=== PATIENT | female | born 1945 | race Caucasian/White ===

== ENCOUNTER 2018-01-25 20:03 | Inpatient (IN) | payer BC, MEDICARE ==
[2018-01-25] MEDS ORDERED: Morphine 4 MG/ML VIAL ONE (20:36)
--- NOTE | 2018-01-25 20:53 | RAD ---
AP VIEW OF THE PELVIS: 01/25/18 INDICATION: Fall at home with right hip pain. COMPARISON: None. IMPRESSION: There is a mildly displaced, suspected subcapital, right femoral neck fracture. No additional fractur e is grossly evident. There is diffuse osteopenia. There is mild degenerative arthrosis of both hips. IMPRESSION: Mildly displaced right, suspected subcapital, femoral neck fracture. Right hip radiographs recomended . POS: [facility]
--- NOTE | 2018-01-25 20:55 | RAD ---
FOUR VIEWS OF THE RIGHT FEMUR: 01/25/18 INDICATIONS: Fall at home with right hip pain. FINDINGS: there is a mildly displaced right basicervical femoral neck fracture. This is best seen on the latera l projection. Dedicated views of the right hip are recommended or additional characterization of the right hip fracture. No additional fracture is evident. IMPRESSION: Right basicervical femoral neck fracture. POS: [facility]
--- NOTE | 2018-01-25 20:56 | RAD ---
TWO VIEWS OF THE RIGHT KNEE 01/25/18 INDICATION: Fall at home. COMPARISON: None. FINDINGS/IMPRESSION: There is diffuse osteopenia. No acute fracture or subluxation seen involving the right knee. POS: [facility]
[2018-01-25 21:08] LABS: #Basophils 0.1 thou/uL (0.0-0.2); #Eosinphils 0.1 thou/uL (0.0-0.7); #Lymphocytes 0.9 thou/uL (1.20-3.40); #Monocytes 0.6 thou/uL (0.11-0.59); #Neutrophils 8.9 thou/uL (1.40-6.50); %Basophils 0.7 % (0.0-1.0); %Eosinophils 1.3 % (0.0-10.0); %Lymphocytes 8.7 % (21.0-51.0); %Monocytes 5.9 % (0.0-10.0); %Neutrophils 83.4 % (42.0-75.0); Hemoglobin 11.6 g/dL (12.0-16.0); Mean Corpuscular HGB CONC 32.8 g/dL (32.0-36.0); Mean Corpuscular Hemoglobin 29.9 pg (27.0-31.0); Mean Corpuscular Volume 91.2 fl (81.0-99.0); Mean Platelet Volume 7.6 fL (7.4-10.4); Platelet Count 250 thou/uL (130-400); RBC Distribution Width 11.9 % (11.5-14.5); Red Blood Cell (RBC) Count 3.87 mill/uL (4.20-5.40); White Blood Cell (WBC) Count 10.7 thou/uL (4.8-10.8)
[2018-01-25 21:18] LABS: Bilirubin Negative (Negative); Blood, Urine Negative (Negative); Clarity CLEAR (Clear); Glucose, Urine (Dipstick) Negative (Negative); Leukocyte Negative (Negative); Nitrite Negative (Negative); Protein, Urine (Dipstick) Negative (Neg-Trace); Urobilinogen 0.2 mg/dL (0.2-1.0)
[2018-01-25 21:30] LABS: ALT (SGPT) 11 U/L (8-55); AST (SGOT) 16 U/L (5-34); Alkaline Phosphatase 85 U/L (40-150); Anion Gap 13 mmol/L (10-20); BUN (Urea Nitrogen) 22 mg/dL (9.8-20.1); Bilirubin, Total 0.3 mg/dL (0.2-1.2); Calc. Creatinine Clearance 0 mL/min (70-130); Calcium 9.4 mg/dL (7.8-10.44); Carbon Dioxide 22 mmol/L (23-31); Chloride 107 mmol/L (98-107); Estimated GFR-MDRD 60; Globulin 2.7 g/dL (2.4-3.5); Glucose 86 mg/dL (80-115); Lipase 45 U/L (8-78); Magnesium 1.8 mg/dL (1.6-2.6); Protein, Total 6.7 g/dL (6.0-8.3); Sodium 138 mmol/L (136-145)
[2018-01-25] MEDS ORDERED: Ketorolac Tromethamine 30 MG/ML VIAL ONE (22:00)
[2018-01-25] MEDS ORDERED: Dextrose 50% Abboject 50 ML SYRINGE SLOW IVP PRN (22:01)
[2018-01-25] MEDS ORDERED: Ondansetron HCl/PF 4 MG/2 ML Vial IVP PRN (22:01)
[2018-01-25] MEDS ORDERED: Morphine 4 MG/ML VIAL SLOW IVP PRN (22:01)
[2018-01-25] MEDS ORDERED: Dextrose 5% in Water 1,000 ML IV PRN (22:01)
[2018-01-25] MEDS ORDERED: traMADol HCl 50 MG TAB PO PRN ×2 (22:01)
[2018-01-25] MEDS ORDERED: hydrALAZINE 20 MG/ML VIAL SLOW IVP PRN (22:01)
[2018-01-25] MEDS ORDERED: Ondansetron ODT 4 MG TAB PO PRN (22:01)
--- NOTE | 2018-01-25 22:35 | RAD ---
AP VIEW OF THE CHEST 01/25/18 INDICATION: History of COPD; preop examination. COMPARISON: Prior exam dated 01/26/16. FINDINGS: Chronic lung changes consistent with COPD are stable. No air space opacity, pleural effusion, or pneu mothorax is evident. No acute osseous abnormality is evident. Heart size and pulmonary vasculature ar e within normal limits. Vascular calcification of the aortic arch is stable. IMPRESSION: 1. No acute cardiopulmonary abnormality. 2. Stable COPD change. POS: [facility]
[2018-01-25] MEDS: Acetaminophen 500 MG TAB PO SCH (23:56)
[2018-01-25] MEDS: Sodium Chloride 0.9% 1,000 ML IV SCH (23:58)
[2018-01-26 00:24] VITALS: BMI 22.5
--- NOTE | 2018-01-26 01:00 | HP ---
DATE OF ADMISSION: 01/25/2018 ATTENDING PHYSICIAN: Dr. Crowe. TRAUMA ACTIVATION: Not applicable. HISTORY OF PRESENT ILLNESS: Tameka Arroyo is a 72-year-old female, who presented to [facility] stat post fall. Per patient, she was stepping backwards down her stairs at home, missed a step and the n fell landing on her right side. She had immediate onset of right hip pain and knee pain. She was unable to ambulate after the fall. She denies hitting her head. She denies having any loss of consc iousness. She was evaluated in the emergency room and found to have an isolated right hip fracture. Upon my evaluation, the patient continues to have a chief complaint of right thigh and right hip tavares n that radiates into her back. She denies any other complaints at this time. ALLERGIES: BETADINE and MERCURY. HOME MEDICATIONS: Include Symbicort inhaler and lisinopril 10 mg p.o. daily. PAST MEDICAL HISTORY: Significant for history of hypertension and COPD. PAST SURGICAL HISTORY: x1. 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 Denies alcohol or illicit drug use. Former sm rosaer, quit approximately 5 years ago, half pack per day x40 years. FAMILY HISTORY: Significant for a mother with rheumatoid arthritis and a father with asbestosis. REVIEW OF SYSTEMS: Ten-point review of systems was negative except as indicated in the HPI. PHYSICAL EXAMINATION: VITAL SIGNS: On evaluation, blood pressure 154/83, pulse 105, O2 sat 93% to 95% on 2 liters via nasa l cannula, temperature 98.3. GENERAL: Well-developed female, in no acute distress, resting in bed. HEAD: Normocephalic, atraumatic. EYES: Pupils are PERRL. Extraocular movements are intact. NECK: Supple. Trachea is midline. CHEST/PULMONARY: No tenderness to palpation, atraumatic. Normal work of breathing, symmetric rise. LUNGS: Clear to auscultation bilaterally. CARDIOVASCULAR: Tachycardic, regular rhythm, no obvious murmurs, rubs or gallops. GASTROINTESTINAL: Abdomen is soft, nontender, nondistended, atraumatic. Bowel sounds are positive. BACK: Reported as being within normal limits. MUSCULOSKELETAL: Right upper extremity, small 1.5 cm abrasion on the right forearm. Left upper extr emity within normal limits. Left lower extremity within normal limits. Right lower extremity flex w ith some internal rotation, limited range of motion secondary to pain. Pulses 2+ bilaterally. She i s neurovascularly intact distal to the side of her injury. NEUROLOGIC: GCS of 15. No focal deficit is noted. LABORATORY FINDINGS: WBC 10.7, hemoglobin 11.6, hematocrit 35.3, platelet count 250. Sodium 138, po tassium 4.0, chloride 107, carbon dioxide 22, BUN 22, creatinine 0.93, glucose 86. AST and ALT withi n normal limits. Urinalysis was unremarkable. EKG with sinus rhythm and incomplete right bundle bra nch block. No evidence of STEMI. RADIOLOGIC FINDINGS: Chest x-ray pending. X-ray of the right knee negative for acute fracture or di slocation. X-ray of the pelvis demonstrated mildly displaced right femoral neck fracture. X-ray of the right femur per radiology read showed a right femoral neck fracture. ASSESSMENT: 1. Status post mechanical fall. 2. Right hip fracture. 3. Acute traumatic pain. 4. History of chronic obstructive pulmonary disease. 5. History of hypertension. 6. Likely chronic kidney disease, GFR of 60, which appears to be at baseline per records review. PLAN: Admit to Trauma Services. We will admit the patient to tow 3, n.p.o. after midnight. Emerg ency room physician has spoken with Dr. Martino who plans to evaluate the patient in the morning. Ge ntle IV fluid hydration. Perioperative pain management with p.o. and IV analgesics. Postoperative P T and OT. DVT and gastritis prophylaxis as appropriate. Plans for admission were discussed with the patient, who vocalized her understanding. All questions were answered at the time of this dictation . Trauma attending has been notified of admission.
[2018-01-26] MEDS: Ketorolac Tromethamine 30 MG/ML VIAL IVP SCH ×3 (04:41→16:17)
[2018-01-26] MEDS: Acetaminophen 500 MG TAB PO SCH ×4 (04:57→22:05)
[2018-01-26 05:41] LABS: #Eosinphils 0.1 thou/uL (0.0-0.7); #Lymphocytes 1.2 thou/uL (1.20-3.40); #Monocytes 0.7 thou/uL (0.11-0.59); #Neutrophils 4.9 thou/uL (1.40-6.50); %Basophils 0.2 % (0.0-1.0); %Eosinophils 1.8 % (0.0-10.0); %Lymphocytes 17.5 % (21.0-51.0); %Monocytes 9.7 % (0.0-10.0); %Neutrophils 70.7 % (42.0-75.0); Hemoglobin 9.9 g/dL (12.0-16.0); Mean Corpuscular HGB CONC 32.7 g/dL (32.0-36.0); Mean Corpuscular Hemoglobin 30.4 pg (27.0-31.0); Mean Corpuscular Volume 92.9 fl (81.0-99.0); Mean Platelet Volume 8.1 fL (7.4-10.4); Platelet Count 200 thou/uL (130-400); Red Blood Cell (RBC) Count 3.25 mill/uL (4.20-5.40)
[2018-01-26 06:03] LABS: Anion Gap 5 mmol/L (10-20); BUN (Urea Nitrogen) 23 mg/dL (9.8-20.1); Calc. Creatinine Clearance 49 mL/min (70-130); Calcium 8.7 mg/dL (7.8-10.44); Carbon Dioxide 27 mmol/L (23-31); Chloride 107 mmol/L (98-107); Estimated GFR-MDRD 49; Glucose 89 mg/dL (80-115); Magnesium 1.9 mg/dL (1.6-2.6); Phosphorus 4.5 mg/dL (2.3-4.7); Potassium 4.2 mmol/L (3.5-5.1); Sodium 135 mmol/L (136-145)
[2018-01-26] MEDS ORDERED: Bupivacaine PF 0.5% 30 ML VIAL ONE (08:08)
[2018-01-26] MEDS ORDERED: Dexamethasone 4 mg/ml Vial ONE (08:08)
[2018-01-26] MEDS: Sodium Chloride 0.9% 1,000 ML IV SCH ×3 (08:20→23:20)
[2018-01-26] MEDS ORDERED: CEFAZOLIN/Water 2 GM/20 ML SYRINGE ONE (08:23)
[2018-01-26] MEDS ORDERED: Famotidine/PF 20 mg/2ml Vial SLOW IVP SCH (09:00)
[2018-01-26] MEDS ORDERED: Senokot S 8.6-50 MG TAB PO SCH (09:00)
--- NOTE | 2018-01-26 09:01 | TCOM ---
DATE OF CONSULTATION: 01/26/2018 HISTORY OF PRESENT ILLNESS: Ms. Arroyo is a 72-year-old white female who was at home. She was niurka ing back, was coming down some stairs, she missed a stair and fell landing on her right side. She zafar d immediate pain in the right hip region and inability to ambulate. The patient was brought to the e mergency room and x-rays revealed impacted femoral neck fracture of the right hip. She has no neurol ogic complaints in the right hip. No other complaints elsewhere. PAST MEDICAL HISTORY: COPD and hypertension. MEDICATIONS: Symbicort inhaler and lisinopril. PAST SURGICAL HISTORY: x1. ALLERGIES: BETADINE, MERCURY and NICKEL. SOCIAL HISTORY: The patient is . She lives at home. She is a former smoker, quit 5 years ag o. 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 She does not drink alcohol or use illicit drugs. PHYSICAL EXAMINATION: GENERAL: Patient is a very pleasant female, alert and oriented x3, cooperative with the examination. VITAL SIGNS: Temperature 97.7, pulse 76, respiratory rate 16, blood pressure 117/61, O2 saturation 9 3% on 2 liters. HEENT: Unremarkable for age. Cranial nerves II-XII are grossly intact. NECK: The neck has good range of motion without pain. Thoracic and lumbar spine are nontender to pa lpation. LUNGS: Clear bilaterally. HEART: Regular rate and rhythm. ABDOMEN: Soft, nontender, bowel sounds positive. : Not done. EXTREMITIES: The patient is able to move both upper extremities and left lower extremity without tavares n. The patient has pain in the right hip region with any attempts of movement. She is able to move her right knee, ankle and toes. Right lower extremity is neurovascularly intact. LABORATORY DATA: CBC shows white count 10.7, hemoglobin 11.6, hematocrit 35.3. Chemistries are norm al. Urinalysis was unremarkable. EKG shows sinus rhythm with incomplete right bundle branch block. IMPRESSION: 1. Impacted femoral neck fracture, right hip. 2. Chronic obstructive pulmonary disease. 3. Hypertension. PLAN: The patient has been worked up. She is surgically cleared for surgery. She will be taken to surgery today for multiple pinning of the right hip. Potential risks with the condition of surgery i nclude, but are not limited to infection, bleeding, pain, damage to blood vessels or nerves, nonunion , malunion. The patient may require additional surgery, DVT and PE formation. The patient's questio ns were answered and she agreed to the procedure.
--- NOTE | 2018-01-26 09:31 | PRG ---
DATE OF SERVICE: 01/26/2018 Please see Susana Bryan PA-C, history and physical. PLAN: Per Dr. Martino, Orthopedic Surgery, the patient has a history of chronic COPD and hypertensio n. She has an impacted femoral neck fracture on the right. Dr. Martino is planning repair today. S he is seen in the preop holding area and is hemodynamically stable. Trauma service will follow.
[2018-01-26] MEDS ORDERED: Bisacodyl 10 MG SUPP PR PRN (10:10)
[2018-01-26] MEDS ORDERED: Fleet Enema 133 ML BOT PR PRN (10:10)
[2018-01-26] MEDS ORDERED: Ondansetron HCl/PF 4 MG/2 ML Vial IVP PRN ×2 (10:10→10:19)
[2018-01-26] MEDS ORDERED: Acetaminophen 325 MG TAB PO PRN (10:10)
[2018-01-26] MEDS ORDERED: Ondansetron ODT 4 MG TAB PO PRN (10:10)
[2018-01-26] MEDS ORDERED: Milk Of Magnesia 30 ML UDCUP PO PRN (10:10)
[2018-01-26] MEDS ORDERED: Cepastat Lozenges 1 LOZ PO PRN (10:10)
[2018-01-26] MEDS ORDERED: HYDROmorphone 2 MG/ML VIAL SLOW IVP PRN (10:19)
[2018-01-26] MEDS ORDERED: Morphine Sulfate 2 MG/ML SYRINGE SLOW IVP PRN (10:19)
[2018-01-26] MEDS ORDERED: Promethazine HCl 25 MG/ML VIAL IM PRN (10:19)
[2018-01-26] MEDS ORDERED: Promethazine HCl 25 MG/ML VIAL SLOW IVP PRN (10:19)
[2018-01-26] MEDS ORDERED: Meperidine HCl/PF 25 MG/ML VIAL SLOW IVP PRN (10:19)
--- NOTE | 2018-01-26 10:39 | OP ---
DATE OF OPERATION: 01/26/2018 PREOPERATIVE DIAGNOSIS: Impacted femoral neck fracture of the right hip. POSTOPERATIVE DIAGNOSIS: Impacted femoral neck fracture of the right hip. PROCEDURE: Multiple pinning of impacted femoral neck fracture, right hip. SURGEON: Flavio Martino M.D. ANESTHESIA: General. TECHNIQUE: The patient was given preoperative IV antibiotics, taken to the operating room and placed in supine position. Satisfactory general anesthesia was performed. The patient was placed on the f racture table. All bony prominences were well padded. C-arm was used to verify impacted femoral nec k fracture, still in good position. Lateral aspect of the right hip and thigh was sterilely prepped and draped in usual fashion. A 1 inch incision was made on the lateral aspect of the proximal thigh and under fluoroscopic visualization, 2 guide pins were placed up through the femoral neck and into t he femoral head. After making sure that the pins were in good position with the C-arm and AP lateral and multiple oblique views, appropriate sized screws were measured and two 32 mm threaded 7.3 cannul ated screws were inserted into the femoral neck and head with good fixation. Again, C-arm was used t o verify proper placement of the screws. The guide pins were removed. The wound was irrigated with antibiotic solution. The wound was closed using 3-0 Rapide. Sterile dressing was applied. The teodoro ent was awakened, extubated, and transferred to recovery room in stable condition. ESTIMATED BLOOD LOSS: 5 mL. COMPLICATIONS: None.
--- NOTE | 2018-01-26 14:13 | RAD ---
RIGHT HIP 2 VIEWS: HISTORY: Hip pain. COMPARISON: None. FINDINGS: There are 2 cannulated partially threaded screws through the right femoral neck. IMPRESSION: Satisfactory appearance of the hardware right femoral neck. POS: [facility]
[2018-01-26] MEDS ORDERED: PROPOFOL 200 MG/20 ML VIAL ONE (15:02)
[2018-01-26] MEDS ORDERED: Lidocaine 1% PF 5 ML VIAL ONE (15:02)
[2018-01-26] MEDS ORDERED: ePHEDrine/0.9% NaCl/PF SYRINGE 50 mg/10 ml ONE (15:02)
[2018-01-26] MEDS ORDERED: Ondansetron HCl/PF 4 MG/2 ML Vial ONE (15:02)
[2018-01-26] MEDS ORDERED: PHENYLEPHRINE-NS 100 MCG/ML 10 ML SYRINGE ONE (15:02)
[2018-01-26] MEDS ORDERED: Dexamethasone 20 MG/5 ML VIAL ONE (15:02)
--- NOTE | 2018-01-26 17:32 | PRG ---
DATE OF SERVICE: 01/26/2018 ATTENDING PHYSICIAN: Dr. Crowe. SUBJECTIVE: Mrs. Arroyo is a 72-year-old female who was admitted overnight with a right hip fracture . She went to the OR this morning with Dr. Martino and is now seen on the surgical floor, postop day 0. Upon my evaluation, she reports that her pain is 0 with rest. She does have a little bit of tavares n with movement. She has been resting comfortably in bed and voices no other complaints. OBJECTIVE: VITAL SIGNS: BP 114/58, pulse 94, temperature 97.6, respirations 16, O2 sat 92% on 3 liters. GENERAL APPEARANCE: Patient is an elderly adult female lying in bed. She is in no acute distress. HEENT: Normocephalic and atraumatic. She has nasal cannula in place. RESPIRATORY: Her breath sounds are clear to auscultation bilaterally. CARDIOVASCULAR: She has regular rate and rhythm. No murmurs, gallops or rubs. Her distal pulses ar e 2+ bilaterally. ABDOMEN: Soft, nontender, and nondistended. She has normal bowel sounds. EXTREMITIES: Patient moves all extremities. She has a dressing over her right greater trochanter wh ich is clean and dry. NEUROLOGIC: Her GCS is 15. She has no focal deficit. LABORATORY DATA: Hematology: WBC 7.0, hemoglobin 9.9, hematocrit 30.2, platelets 200. Chemistry: Sodium 135, potassium 4.2, chloride 107, bicarbonate 27, BUN 23, creatinine 1.10, glucose 89, calcium 8.7, phosphorus 4.5, magnesium 1.9. IMAGING: There are no images to review today. ASSESSMENT: 1. Status post ground level fall. 2. Right hip fracture. 3. Acute traumatic pain. 4. History of chronic obstructive pulmonary disease. 5. History of hypertension. 6. History of chronic kidney disease. PLAN: 1. Continue to optimize the patient's pain control. Patient currently reports adequate pain control with Tylenol, Toradol, and Tramadol. 2. Incentive spirometry and pulmonary toilet. 3. PT and OT tomorrow for mobilization. 4. Rehabilitation consultation. 5. Chemical DVT prophylaxis when okay per Orthopedic Surgery. 6. Trend kidney function and monitor fluid balance. This patient was seen and examined along with Dr. Crowe who agrees with the assessment and plan.
[2018-01-26] MEDS: Mometasone/Formoterol 120 PUFF INHALER INH SCH (18:57)
[2018-01-26] MEDS: Famotidine 20 MG TAB PO SCH (20:45)
[2018-01-26] MEDS: Ascorbic Acid 500 mg Chewable Tablet PO SCH (20:45)
[2018-01-26] MEDS: Ferrous Gluconate 324 MG TAB PO SCH (20:46)
[2018-01-26] MEDS: Senokot S 8.6-50 MG TAB PO SCH (20:46)
[2018-01-26] MEDS: Ibuprofen 200 MG TAB PO SCH (22:04)
[2018-01-26] MEDS: traMADol HCl 50 MG TAB PO SCH (23:19)
[2018-01-27] MEDS: Sodium Chloride 0.9% 1,000 ML IV SCH ×2 (04:28→05:46)
[2018-01-27] MEDS: Acetaminophen 500 MG TAB PO SCH ×4 (04:29→20:26)
[2018-01-27] MEDS: Ibuprofen 200 MG TAB PO SCH ×3 (05:32→20:25)
[2018-01-27] MEDS: traMADol HCl 50 MG TAB PO SCH ×4 (05:33→23:52)
[2018-01-27 05:47] LABS: Hemoglobin 9.1 g/dL (12.0-16.0); Mean Corpuscular HGB CONC 32.3 g/dL (32.0-36.0); Mean Corpuscular Hemoglobin 29.7 pg (27.0-31.0); Mean Platelet Volume 7.9 fL (7.4-10.4); Platelet Count 160 thou/uL (130-400); Red Blood Cell (RBC) Count 3.07 mill/uL (4.20-5.40)
[2018-01-27 05:48] LABS: #Lymphocytes 0.7 thou/uL (1.20-3.40); #Monocytes 0.6 thou/uL (0.11-0.59); #Neutrophils 5.6 thou/uL (1.40-6.50); %Basophils 0.3 % (0.0-1.0); %Eosinophils 0.1 % (0.0-10.0); %Lymphocytes 9.9 % (21.0-51.0); %Monocytes 8.8 % (0.0-10.0); %Neutrophils 80.9 % (42.0-75.0); Mean Corpuscular Volume 93.9 fl (81.0-99.0); Mean Platelet Volume 8.2 fL (7.4-10.4); Platelet Count 161 thou/uL (130-400); White Blood Cell (WBC) Count 6.9 thou/uL (4.8-10.8)
[2018-01-27 06:14] LABS: Anion Gap 9 mmol/L (10-20); BUN (Urea Nitrogen) 18 mg/dL (9.8-20.1); Calc. Creatinine Clearance 60 mL/min (70-130); Calcium 8.3 mg/dL (7.8-10.44); Carbon Dioxide 22 mmol/L (23-31); Chloride 111 mmol/L (98-107); Estimated GFR-MDRD 62; Glucose 113 mg/dL (80-115); Magnesium 1.9 mg/dL (1.6-2.6); Potassium 4.2 mmol/L (3.5-5.1); Sodium 138 mmol/L (136-145)
[2018-01-27] MEDS: Mometasone/Formoterol 120 PUFF INHALER INH SCH ×2 (06:20→20:10)
[2018-01-27] MEDS ORDERED: Lisinopril 10 MG TAB PO SCH (09:00)
[2018-01-27] MEDS: Polyethylene Glycol 3350 17 GM Packet PO SCH (09:49)
[2018-01-27] MEDS: Multivitamin W/ Minerals 1 TAB PO SCH (09:50)
[2018-01-27] MEDS: Ascorbic Acid 500 mg Chewable Tablet PO SCH ×2 (09:50→20:24)
[2018-01-27] MEDS: Famotidine 20 MG TAB PO SCH ×2 (09:50→20:25)
[2018-01-27] MEDS: Ferrous Gluconate 324 MG TAB PO SCH ×2 (09:50→20:25)
[2018-01-27] MEDS: Senokot S 8.6-50 MG TAB PO SCH ×2 (09:50→20:25)
--- NOTE | 2018-01-27 10:26 | PRG ---
DATE OF SERVICE: 01/27/2018 SUBJECTIVE: Ms. Arroyo is 1 day status post multiple pinning of impacted femoral neck fracture of th e right hip. She states that she is doing well. She has very little pain at rest. Still has some n umbness over the anterior aspect of the right hip and thigh. PHYSICAL EXAMINATION: VITAL SIGNS: Patient is afebrile. Vital signs are stable. EXTREMITIES: The right lower extremity is neurovascularly intact in the foot and ankle. She is able to dorsiflex and plantarflex the ankle well. Has good flexion and extension of her toes. Good kathrin pheral pulses. LABORATORY DATA: Hemoglobin is 9.1 and hematocrit 28.3. PLAN: The patient will be started in physical and occupational therapy to mobilize the patient. She may weightbear as tolerated on the right lower extremity, but should use a walker to ambulate and we will progress her activity as tolerated.
--- NOTE | 2018-01-27 11:50 | PRG ---
DATE OF SERVICE: 01/27/2018 ATTENDING PHYSICIAN: Dr. Crowe. SUBJECTIVE: Mrs. Arroyo is a 72-year-old female who was admitted 2 nights ago with a right hip fract ure. She is now postop day #1 status post open reduction and internal fixation with Dr. Martino. Th is morning on exam, she reports that her pain is well controlled. She is somewhat sleepy and hoarse that she did not sleep well overnight. OBJECTIVE: VITAL SIGNS: BP 119/64, pulse 78, temperature 97.9, respirations 16, O2 sat 92% on 2 liters. GENERAL APPEARANCE: The patient is an elderly adult female lying in bed. She is in no acute distres s. HEENT: Normocephalic and atraumatic. She has nasal cannula in place. RESPIRATORY: Breath sounds clear to auscultation bilaterally. CARDIOVASCULAR: She has regular rate and rhythm. No murmurs, gallops or rubs. Her distal pulses ar e 2+ bilaterally. ABDOMEN: Soft, nontender, nondistended. Her bowel sounds are hypoactive. EXTREMITIES: The patient has a dressing in place of her right greater trochanter which is clean and mostly dry. There is a minimal amount of serosanguineous drainage. She is neurovascularly intact x4 . NEUROLOGIC: Her GCS is 15. She has no focal deficits. She is alert and oriented x3 this morning. LABORATORY DATA: Hematology: WBC 7.0, hemoglobin 9.1, hematocrit 28.3, platelets 160. Chemistry: Sodium 138, potassium 4.2, chloride 111, bicarbonate 22, BUN 18, creatinine 0.90, glucose 113, calciu m 8.3, phosphorus 4.0, magnesium 1.9. IMAGES: There are no images to review today. ASSESSMENT: 1. Status post ground level fall. 2. Right hip fracture, status post open reduction and internal fixation, postoperative day #1. 3. Acute traumatic pain. 4. History of chronic obstructive pulmonary disease. 5. History of hypertension. 6. History of chronic kidney disease. PLAN: 1. Continue pain control as ordered. 2. Encourage incentive spirometry and pulmonary toileting. 3. PT and OT today for mobilization. 4. Chemical DVT prophylaxis when okay per Orthopedic Surgery. 5. Continue to trend kidney function, monitor fluid balance. This patient was discussed with Dr. Crowe and Dr. Jj who agrees with the assessment and plan.
[2018-01-27] MEDS ORDERED: Cyclobenzaprine 10 MG TAB PO PRN (18:43)
[2018-01-27] MEDS: Enoxaparin Sodium 40 MG/0.4 ML SYRINGE SC SCH (20:24)
[2018-01-28] MEDS: Acetaminophen 500 MG TAB PO SCH ×4 (03:57→20:37)
[2018-01-28] MEDS: Ibuprofen 200 MG TAB PO SCH ×3 (05:10→22:06)
[2018-01-28] MEDS: traMADol HCl 50 MG TAB PO SCH ×4 (05:11→23:57)
[2018-01-28] MEDS: Mometasone/Formoterol 120 PUFF INHALER INH SCH ×2 (07:06→18:39)
[2018-01-28 08:08] LABS: #Basophils 0.1 thou/uL (0.0-0.2); #Eosinphils 0.4 thou/uL (0.0-0.7); #Monocytes 0.5 thou/uL (0.11-0.59); #Neutrophils 4.9 thou/uL (1.40-6.50); %Basophils 0.8 % (0.0-1.0); %Eosinophils 5.8 % (0.0-10.0); %Lymphocytes 14.9 % (21.0-51.0); %Monocytes 7.8 % (0.0-10.0); %Neutrophils 70.6 % (42.0-75.0); Hemoglobin 10.1 g/dL (12.0-16.0); Mean Corpuscular HGB CONC 32.2 g/dL (32.0-36.0); Mean Corpuscular Hemoglobin 30.4 pg (27.0-31.0); Mean Corpuscular Volume 94.3 fl (81.0-99.0); Mean Platelet Volume 8.2 fL (7.4-10.4); Platelet Count 194 thou/uL (130-400); RBC Distribution Width 12.2 % (11.5-14.5); Red Blood Cell (RBC) Count 3.32 mill/uL (4.20-5.40); White Blood Cell (WBC) Count 6.9 thou/uL (4.8-10.8)
[2018-01-28] MEDS: Lisinopril 10 MG TAB PO SCH (08:14)
[2018-01-28] MEDS: Ferrous Gluconate 324 MG TAB PO SCH ×2 (08:14→20:36)
[2018-01-28] MEDS: Ascorbic Acid 500 mg Chewable Tablet PO SCH ×2 (08:15→20:38)
[2018-01-28] MEDS: Famotidine 20 MG TAB PO SCH ×2 (08:15→20:36)
[2018-01-28] MEDS: Bisacodyl 10 MG SUPP PR SCH (08:15)
[2018-01-28] MEDS: Multivitamin W/ Minerals 1 TAB PO SCH (08:15)
[2018-01-28] MEDS: Senokot S 8.6-50 MG TAB PO SCH ×2 (08:15→19:20)
[2018-01-28] MEDS: Polyethylene Glycol 3350 17 GM Packet PO SCH (08:16)
[2018-01-28 08:27] LABS: Anion Gap 7 mmol/L (10-20); BUN (Urea Nitrogen) 16 mg/dL (9.8-20.1); Calc. Creatinine Clearance 63 mL/min (70-130); Calcium 8.9 mg/dL (7.8-10.44); Carbon Dioxide 26 mmol/L (23-31); Chloride 108 mmol/L (98-107); Estimated GFR-MDRD 65; Glucose 86 mg/dL (80-115); Magnesium 1.9 mg/dL (1.6-2.6); Phosphorus 3.1 mg/dL (2.3-4.7); Potassium 4.2 mmol/L (3.5-5.1); Sodium 137 mmol/L (136-145)
--- NOTE | 2018-01-28 11:16 | PRG ---
DATE OF SERVICE: 01/28/2018 SUBJECTIVE: Ms. Arroyo is 2 days status post multiple pinning of impacted femoral neck fracture of t he right hip. The patient states that her pain has decreased. She is doing better. PHYSICAL EXAMINATION: VITAL SIGNS: The patient has been afebrile. Pulse 95, respiratory rate is 18, blood pressure 178/79 . MUSCULOSKELETAL: Incision over the lateral aspect of the right thigh is healing well. There is mini mal swelling, no erythema or drainage. Right lower extremity remains neurovascularly intact. LABORATORY DATA: This morning, CBC; white count 6.9, hemoglobin 10.1, hematocrit 31.3. PLAN: The patient will continue with PT and OT to help mobilize her to get her out of bed and ambula te. She may weightbear as tolerated on the right lower extremity. There is no hip precautions. The patient is planning on trying to get into a rehab after discharge.
[2018-01-28] MEDS: traMADol HCl 50 MG TAB PO PRN (14:41)
--- NOTE | 2018-01-28 18:24 | PRG ---
DATE OF SERVICE: 01/28/2018 ATTENDING PHYSICIAN: Hai Jj DO SUBJECTIVE: Mrs. Arroyo is a 72-year-old female, who was admitted 3 nights ago with a right hip frac ture. She is now postop day #2, status post open reduction and internal fixation. She reports that her pain is generally well controlled except when she has to move. She reports that she is not sleep ing well. OBJECTIVE: VITAL SIGNS: Blood pressure 178/79, pulse 95, temperature 98.4, respirations 18, O2 sat 83% on room air. GENERAL APPEARANCE: The patient is an elderly adult female lying in bed, in no acute distress. HEENT: Normocephalic and atraumatic. RESPIRATORY: Breath sounds clear to auscultation bilaterally. CARDIOVASCULAR: Regular rate and rhythm. No murmurs, gallops or rubs. ABDOMEN: Soft, nontender, nondistended. Bowel sounds hypoactive. EXTREMITIES: The patient is neurovascularly intact x4. A dressing is in place of her right hip. NEUROLOGIC: GCS of 15. She has no focal deficits. She is alert and oriented x3 this morning. LABORATORY DATA: Hematology: WBC 6.9, hemoglobin 10.1, hematocrit 31.3, platelets 194. Chemistry: Sodium 137, potassium 4.2, chloride 108, bicarbonate 26, BUN 16, creatinine 0.86, glucose 86, calciu m 8.9, phosphorus 3.1, magnesium 1.9. IMAGING: There are no images to review. ASSESSMENT: 1. Status post ground level fall. 2. Right hip fracture, status post open reduction and internal fixation, postoperative day #2. 3. Acute traumatic pain. 4. History of chronic obstructive pulmonary disease. 5. History of hypertension. 6. History of chronic kidney disease. PLAN: 1. Continue pain control as ordered. The nurse remained that the patient has a p.r.n. tramadol, whi ch she has not been getting. Nursing communication order written, instructing the patient to get thi s 30 minutes before physical therapy. 2. Incentive spirometer and pulmonary toileting. 3. PT and OT for mobilization. 4. Nasal cannula oxygen supplementation given background COPD and low oxygen saturation this morning . The patient reports that she thinks her DuoNebs did not help and she wants to be placed back on he r Symbicort. Dr. Jj was in agreement with this. This patient was seen and examined along with Dr. Jj who agrees with the assessment and plan.
[2018-01-28] MEDS: Enoxaparin Sodium 40 MG/0.4 ML SYRINGE SC SCH (20:36)
[2018-01-28] MEDS ORDERED: Furosemide 20 MG/2 ML VIAL SLOW IVP SCH (22:30)
--- NOTE | 2018-01-28 22:37 | RAD ---
PORTABLE CHEST: HISTORY: Hypoxic. COMPARISON: 01/25/2018 FINDINGS: The lungs appear well aerated and clear. NO infiltrate or vascular congestion. Heart size is within the normal range. IMPRESSION: No acute lung process identified. POS: [facility]
[2018-01-29] MEDS: traMADol HCl 50 MG TAB PO PRN (02:26)
[2018-01-29] MEDS: Acetaminophen 500 MG TAB PO SCH ×4 (03:45→21:26)
[2018-01-29] MEDS: Mometasone/Formoterol 120 PUFF INHALER INH SCH ×2 (05:52→19:09)
[2018-01-29 06:15] LABS: Anion Gap 10 mmol/L (10-20); BUN (Urea Nitrogen) 12 mg/dL (9.8-20.1); Calc. Creatinine Clearance 62 mL/min (70-130); Calcium 8.9 mg/dL (7.8-10.44); Carbon Dioxide 27 mmol/L (23-31); Chloride 104 mmol/L (98-107); Estimated GFR-MDRD 64; Glucose 78 mg/dL (80-115); Magnesium 1.8 mg/dL (1.6-2.6); Phosphorus 3.8 mg/dL (2.3-4.7); Potassium 3.7 mmol/L (3.5-5.1); Sodium 137 mmol/L (136-145)
[2018-01-29] MEDS: Ibuprofen 200 MG TAB PO SCH ×3 (06:32→21:22)
[2018-01-29] MEDS: traMADol HCl 50 MG TAB PO SCH ×3 (06:32→18:01)
[2018-01-29] MEDS: Lisinopril 10 MG TAB PO SCH (09:17)
[2018-01-29] MEDS: Multivitamin W/ Minerals 1 TAB PO SCH (09:17)
[2018-01-29] MEDS: Senokot S 8.6-50 MG TAB PO SCH ×2 (09:17→21:26)
[2018-01-29] MEDS: Polyethylene Glycol 3350 17 GM Packet PO SCH (09:17)
[2018-01-29] MEDS: Bisacodyl 10 MG SUPP PR SCH (09:17)
[2018-01-29] MEDS: Ascorbic Acid 500 mg Chewable Tablet PO SCH ×2 (09:17→21:17)
[2018-01-29] MEDS: Ferrous Gluconate 324 MG TAB PO SCH ×2 (09:17→21:18)
[2018-01-29] MEDS: Famotidine 20 MG TAB PO SCH ×2 (09:19→21:26)
[2018-01-29] MEDS ORDERED: Potassium Chloride 40 MEQ in Sodium Chloride 0.9% 250 ML 250 ML IVPB SCH (12:00)
[2018-01-29] MEDS ORDERED: Magnesium 2 GM/NS 0.9% 50 ML 2 GM in Premix Bag 1 BAG IVPB SCH (12:00)
--- NOTE | 2018-01-29 12:13 | PRG-2 ---
DATE OF SERVICE: 01/29/2018 ATTENDING PHYSICIAN: Dr. Hai Jj SUBJECTIVE: Ms. Arroyo is a 72-year-old female who was admitted for right hip fracture. She is post op day #3 status post open reduction internal fixation. The patient reports that her pain is well co ntrolled and has been working with PT. She does report a cough and has been intermittently requiring nasal cannula. OBJECTIVE: VITAL SIGNS: Temperature 98.1, pulse 96, respiratory rate 16, O2 sat 94% on 1 liter nasal cannula, b lood pressure 148/73. GENERAL: Well-developed elderly adult female lying in bed in no acute distress. HEENT: Normocephalic, atraumatic. Moist mucous membranes. RESPIRATORY: No use of accessory muscles of respiration. Clear to auscultation bilaterally. Nasal cannula in place. CARDIOVASCULAR: Regular rate and rhythm. No murmurs, gallops or rubs. ABDOMEN: Nondistended, soft, nontender. EXTREMITIES: Neurovascularly intact x4. Incision on right hip clean, dry, and intact. NEUROLOGIC: GCS of 15. No focal deficits. Awake, alert and oriented x3. LABORATORY DATA: Sodium 137, potassium 3.7, chloride 104, CO2 27, BUN 12, creatinine 0.87, GFR 64, g lucose 78, calcium 8.9, phosphorus 3.8, magnesium 1.8. IMAGING: Chest x-ray showed no acute lung process identified. ASSESSMENT: 1. Status post ground level fall. 2. Right hip fracture, status post open reduction and internal fixation, postop day #3. 3. Acute traumatic pain. 4. History of chronic obstructive pulmonary disease. 5. History of hypertension. 6. History of chronic kidney disease. PLAN: 1. Continue pain control with acetaminophen, ibuprofen and tramadol. 2. Incentive spirometer and DuoNebs, as well as the patient's home Spiriva. 3. Dulcolax, milk of magnesia, MiraLax, senna, docusate and p.r.n. Fleet enema for constipation. 4. PT, OT for mobilization. 5. Case management consult, awaiting placement at rehabilitation. 6. Lovenox for VTE prophylaxis. 7. Iron and vitamin C, for anemia. 8. Replace potassium and magnesium. Dr. Jj saw and examined the patient and formulated the plan with me.
[2018-01-29] MEDS: Enoxaparin Sodium 40 MG/0.4 ML SYRINGE SC SCH (21:18)
--- NOTE | 2018-01-29 22:14 | PRG ---
DATE OF PROGRESS NOTE: 01/29/2018 HISTORY OF PRESENT ILLNESS: Ms. Arroyo is 3 days status post multiple pinning of a femoral neck frac ture of the right hip. States that her pain has decreased. She has been working with therapy to mob minal, get out of bed, ambulate with a walker and she is doing well without pain in her hip is decrea sing. She has had some problems in breathing and has been treated with some diuretics and breathing treatments and then she has responded well with that. PHYSICAL EXAMINATION: The patient's vital signs are stable. She has remained afebrile. Incision on the lateral aspect of the right thigh is healing very well. There is no erythema or drainage. PLAN: The patient may increase her activities as tolerated on the right hip. She has no hip precaut ions. She may weightbear as tolerated on the right lower extremity, but should use a walker to avoid any falls. The patient is planning on going to a rehab facility at discharge. Orthopedic guerrero, she could go at any day.
[2018-01-30] MEDS: traMADol HCl 50 MG TAB PO SCH ×4 (00:43→18:15)
--- NOTE | 2018-01-30 01:48 | PRG ---
DATE OF SERVICE: 01/29/2018 SUBJECTIVE: Patient is status post multiple pinning of femoral neck fracture of the right hip. Marilou ent is doing well. She has been working with physical and occupational therapy. The patient has bee n able to ambulate to the door of her room. She states that she is "nervous to go any further than t hat because her therapist is small and she is afraid that she will fall and the therapist will not be able to catch her." I informed the patient to let her therapist noted this concern and she could ma ke sure that there was additional help or a larger therapist available. Otherwise, the patient's tavares n is controlled. She is tolerating a diet. PHYSICAL EXAMINATION: VITAL SIGNS: Temperature is 98.5, heart rate of 100, blood pressure 161/79, respirations 16, oxygen saturation 92% on room air. GENERAL: Patient is resting comfortably in bed. She is alert and oriented x3. Ivette coma scale i s 15. LUNGS: Clear to auscultation with good inspiratory and expiratory effort. Patient is able to draw about 1250 on her incentive spirometry. ABDOMEN: Soft, flat, nontender with active bowel sounds. EXTREMITIES: Neurovascularly intact. ASSESSMENT AND PLAN: 1. Status post ground level fall. 2. Status post multiple pinning of right femoral neck fracture. PLAN: Will be to continue physical and occupational therapy, supportive care, and await placement de cision.
[2018-01-30] MEDS: Acetaminophen 500 MG TAB PO SCH ×4 (03:27→21:57)
[2018-01-30] MEDS: Ibuprofen 200 MG TAB PO SCH ×3 (05:58→21:57)
[2018-01-30] MEDS: Mometasone/Formoterol 120 PUFF INHALER INH SCH ×2 (06:28→18:45)
[2018-01-30] MEDS: Famotidine 20 MG TAB PO SCH ×2 (08:56→21:57)
[2018-01-30] MEDS: Bisacodyl 10 MG SUPP PR SCH (08:56)
[2018-01-30] MEDS: Polyethylene Glycol 3350 17 GM Packet PO SCH (08:56)
[2018-01-30] MEDS: Senokot S 8.6-50 MG TAB PO SCH ×2 (08:57→21:57)
[2018-01-30] MEDS: Multivitamin W/ Minerals 1 TAB PO SCH (08:58)
[2018-01-30] MEDS: Ascorbic Acid 500 mg Chewable Tablet PO SCH ×2 (08:58→21:57)
[2018-01-30] MEDS: Lisinopril 10 MG TAB PO SCH (08:58)
[2018-01-30] MEDS: Ferrous Gluconate 324 MG TAB PO SCH ×2 (08:58→21:57)
--- NOTE | 2018-01-30 19:06 | PRG ---
DATE OF SERVICE: 01/30/2018 ATTENDING PHYSICIAN: Dr. Hai Jj. SUBJECTIVE: Ms. Arroyo is a 72-year-old female who was admitted for right hip fracture. She is postoperative day #4 status post ORIF of the right hip. She reports that her pain is well controlled. She refused to mobilize with physical therapy yesterday. She is seen today mobilizing with physical therapy. OBJECTIVE: VITAL SIGNS: Temperature 98.2, pulse 99, respirations 16, O2 sat 92% on half liter nasal cannula, blood pressure 126/68. GENERAL: Elderly female lying in bed in no acute distress. HEENT: Normocephalic, atraumatic. RESPIRATORY: Bilateral breath sounds clear. No respiratory distress. CARDIOVASCULAR: Regular rate and rhythm. Heart sounds normal. ABDOMEN: Soft, nontender, nondistended. EXTREMITIES: Neurovascular intact x4. Moves all extremities well. Cap refill brisk. NEUROLOGIC: GCS of 15. Awake, alert, oriented x3. No focal deficits. ASSESSMENT: 1. Status post ground-level fall. 2. Right hip fracture, status post open reduction and internal fixation, postoperative day. 3. Acute traumatic pain. 4. History of chronic obstructive pulmonary disease. 5. History of hypertension. 6. History of chronic kidney disease. PLAN: 1. Continue mobilizing with physical and occupational therapy. 2. Continue oral analgesia as ordered. 3. Encourage pulmonary toilet and incentive spirometer. 4. Case management following for discharge planning. Anticipated the patient was discharged to rehab today; however, I have not received insurance authorization. Anticipate the patient will discharge in the next 1-2 days. The patient was seen and examined with Dr. Jj who agrees with the assessment and plan. [facility]
[2018-01-30] MEDS: Enoxaparin Sodium 40 MG/0.4 ML SYRINGE SC SCH (21:56)
[2018-01-31] MEDS: traMADol HCl 50 MG TAB PO SCH ×5 (00:07→23:35)
--- NOTE | 2018-01-31 00:22 | PRG ---
DATE OF SERVICE: 01/30/2018 SUBJECTIVE: Ms. Arroyo is currently on the surgical floor. She is status post multiple pinning of f emoral neck fracture of the right hip. She has been working with physical and occupational therapy, and by report from the nursing staff, she is tolerating a diet. Her pain is controlled. At the time of my visit, the patient was sleeping. The patient is currently awaiting bed availability at [facility]. This project that she would leave today, but that did not happen, so presumption is she wi ll leave tomorrow at some point: OBJECTIVE: VITAL SIGNS: Temperature is 98.4, heart rate 97, blood pressure 138/76, respirations 16, oxygen satu ration 94% on room air. GENERAL: The patient is sleeping and appears to be in no distress. ASSESSMENT AND PLAN: 1. Status post ground level fall. 2. Status post multiple pinning of right hip fracture. PLAN: Will be to continue supportive care and await placement.
[2018-01-31] MEDS: Acetaminophen 500 MG TAB PO SCH ×4 (05:11→21:31)
[2018-01-31] MEDS: Ibuprofen 200 MG TAB PO SCH ×3 (05:12→21:31)
[2018-01-31] MEDS: Mometasone/Formoterol 120 PUFF INHALER INH SCH ×2 (06:51→19:17)
[2018-01-31] MEDS: Ascorbic Acid 500 mg Chewable Tablet PO SCH ×2 (10:46→20:23)
[2018-01-31] MEDS: Famotidine 20 MG TAB PO SCH ×2 (10:47→20:23)
[2018-01-31] MEDS: Lisinopril 10 MG TAB PO SCH (10:47)
[2018-01-31] MEDS: Multivitamin W/ Minerals 1 TAB PO SCH (10:47)
[2018-01-31] MEDS: Ferrous Gluconate 324 MG TAB PO SCH ×2 (10:49→20:24)
[2018-01-31] MEDS: Senokot S 8.6-50 MG TAB PO SCH ×3 (10:49→20:26)
[2018-01-31] MEDS: Bisacodyl 10 MG SUPP PR SCH (10:50)
[2018-01-31] MEDS: Polyethylene Glycol 3350 17 GM Packet PO SCH (10:51)
--- NOTE | 2018-01-31 14:01 | DIS ---
DATE OF ADMISSION: 01/25/2018 DATE OF DISCHARGE: 02/01/2018 REASON FOR HOSPITALIZATION: Fall down stairs with right hip fracture. HOSPITAL DIAGNOSES: 1. Status post mechanical fall. 2. Right femoral neck fracture. PROCEDURE: Multiple pinning of impacted femoral neck fracture, right hip. Date of operation, 01/26/2018. Surgeon: Dr. Flavio Martino. DISCHARGE CONDITION: Good. DISPOSITION: Inpatient rehabilitation. DISCHARGE MEDICATIONS: 1. Acetaminophen 1000 mg p.o. q.6 h. 2. Ascorbic acid 500 mg p.o. b.i.d. 3. Dulcolax 10 mg p.o. daily. 4. Symbicort 80 b.i.d. 5. Dulera 2 puffs b.i.d. 6. Cepastat lozenges 1 lozenge q. 2 hours p.r.n. 7. Flexeril 5 mg p.o. t.i.d. 8. Lovenox 40 mg subcu once a day. 9. Pepcid 20 mg p.o. b.i.d. 10. Fergon 324 mg p.o. b.i.d. 11. Ibuprofen 400 mg p.o. q.8 h. 12. DuoNeb 3 mL t.i.d. as needed. 13. Lisinopril 10 mg p.o. daily. 14. Magnesium hydroxide 30 mL p.o. daily p.r.n. 15. Multivitamin 1 tab p.o. daily. 16. MiraLax 17 grams p.o. daily as needed. 17. Senokot-S 2 tabs p.o. daily. 18. Fleets enema 133 mL p.o. daily p.r.n. 19. Tramadol 50 mg p.o. q.6 h. p.r.n. ACTIVITY: Weightbearing as tolerated. THERAPY: Continue physical and occupational therapy. DIET: Regular. Plan for followup, Dr. Martino in 2 weeks. BRIEF HISTORY OF HOSPITALIZATION: Ms. Arroyo is a 72-year-old female who was stepping backwards down her stairs at home when she missed a step and fell landing on her right side. She had pain in her right hip. She was transported to [facility] where right hip fracture was identified. She was admitted by Trauma Services. Dr. Martino, Orthopedics, was consulted. Dr. Martino subsequently took the patient to the OR for fixation of her right hip fracture. She was then managed on the surgical floor where she began mobilizing with physical and occupational therapy. Pain was well controlled on oral analgesia. Home medications were resumed. Case management was consulted for discharge planning. The patient elected to go to inpatient rehabilitation. When insurance authorization was approved, the patient was discharged to [facility]. The patient was reviewed with Dr. Jj who agreed with plan for discharge. [facility]
[2018-01-31] MEDS: Enoxaparin Sodium 40 MG/0.4 ML SYRINGE SC SCH (20:23)
[2018-02-01] MEDS: Acetaminophen 500 MG TAB PO SCH ×2 (03:20→09:48)
[2018-02-01] MEDS: Ibuprofen 200 MG TAB PO SCH ×2 (05:30→12:07)
[2018-02-01] MEDS: traMADol HCl 50 MG TAB PO SCH ×2 (05:31→12:07)
[2018-02-01] MEDS: Mometasone/Formoterol 120 PUFF INHALER INH SCH (08:00)
--- NOTE | 2018-02-01 09:15 | PRG ---
DATE OF SERVICE: 01/31/2019 ATTENDING PHYSICIAN: Dr. Hai Jj. SUBJECTIVE: Ms. Arroyo is a 72-year-old female who was admitted for right hip fracture. She is postoperative day #5 status post ORIF of the right hip. Her pain has been well controlled. She has been active over the past 2 days with physical therapy. She has had no complaints. OBJECTIVE: VITAL SIGNS: Temperature 98.6, pulse 90, respirations 18, O2 sat 93% on 1 liter nasal cannula, blood pressure 118/62. GENERAL: Elderly female, sitting on bed, in no acute distress. HEENT: Normocephalic, atraumatic. LUNGS: Bilateral breath sounds clear. No respiratory distress. CARDIOVASCULAR: Regular rate and rhythm. Heart sounds normal. ABDOMEN: Soft, nontender, nondistended. EXTREMITIES: Neurovascular intact x4. Moves all extremities well. Cap refill brisk. Surgical dressing to right hip clean, dry, and intact. NEUROLOGIC: GCS 15. Awake, alert, oriented x3. No focal deficits. ASSESSMENT: 1. Status post ground level fall. 2. Right hip fracture, status post open reduction internal fixation, postoperative day #5. 3. History of chronic obstructive pulmonary disease, present on admission. 4. History of hypertension, present on admission. 5. History of chronic kidney disease, present on admission. PLAN: 1. Continue mobilizing with physical and occupational therapy. 2. Continue oral analgesia as ordered. 3. Encourage pulmonary toilet and incentive spirometer. Case management following for discharge planning. The patient is still awaiting insurance approval for rehab placement. We will discharge to rehabilitation when insurance approval is obtained. The patient was reviewed with Dr. Jj, who agrees with plan. [facility]
[2018-02-01] MEDS: Ferrous Gluconate 324 MG TAB PO SCH (09:46)
[2018-02-01] MEDS: Lisinopril 10 MG TAB PO SCH (09:46)
[2018-02-01] MEDS: Ascorbic Acid 500 mg Chewable Tablet PO SCH (09:46)
[2018-02-01] MEDS: Multivitamin W/ Minerals 1 TAB PO SCH (09:46)
[2018-02-01] MEDS: Famotidine 20 MG TAB PO SCH (09:47)
[2018-02-01] MEDS: Bisacodyl 10 MG SUPP PR SCH (09:47)
[2018-02-01] MEDS: Senokot S 8.6-50 MG TAB PO SCH (09:48)
[2018-02-01] MEDS: Polyethylene Glycol 3350 17 GM Packet PO SCH (09:48)
[2018-02-01 15:23] VITALS: BP 158/88; TEMP 97.6
--- NOTE | 2018-02-02 20:13 | EKG ---
Test Reason : Blood Pressure : / mmHG Vent. Rate : 093 BPM Atrial Rate : 093 BPM P-R Int : 152 ms QRS Dur : 078 ms QT Int : 356 ms P-R-T Axes : 075 062 065 degrees QTc Int : 442 ms Normal sinus rhythm Incomplete right bundle branch block Normal ECG Confirmed by JOSE MANUEL WANG ([id number]), editor farm journal KEITH DEWITT ([id number]) on 02/02/2018 8:12:45 PM Referred By: Confirmed By:JOSE MANUEL WANG
--- NOTE | 2018-04-22 10:18 | PQF ---
SHE TAVARES DR. [id number] SURG B- [id number] CLINICAL DOCUMENTATION IMPROVEMENT CLARIFICATION FORM: ICD-10 Updated PLEASE DO AN ADDENDUM TO THE PROGRESS NOTE WITH ANY DOCUMENTATION UPDATES OR ADDITIONS AND CARRY THROUGH TO DC SUMMARY. THANK YOU. DATE: 04-22-18 ATTN: DR. Zhen MOORE Please exercise your independent, professional judgment in responding to the clarification form. Clinical indicators are provided on the bottom of this form for your review Please check appropriate box(s): [ ] COPD EXACERBATION [ x ] COPD WITHOUT EXACERBATION [ ] Unable to determine [ ] Other For continuity of documentation, please document condition throughout progress notes and discharge summary. Thank You. CLINICAL INDICATORS - SIGNS / SYMPTOMS / LABS 4-2 PN (GRACIE GAVIRIA): NASAL CANNULA OXYGEN SUPPLEMENTATION - GIVEN BACKGROUND COPD AND LOW OXYGEN SAT THIS MORNING PT REPORTS DUONEB DID NOT HELP - WANTS BACK ON SYMBICORT 4-3 PN (LUANN): PT REPORTS A COUGH AND HAS BEEN INTERMITTENTLY REQUIRING NASAL CANNULA RISK FACTORS H&P: HTN; COPD TREATMENTS: 4-2 PN (WILLARD): NASAL CANNULA OXYGEN SUPPLEMENTATION - GIVEN BACKGROUD COPD AND LOW OXYGEN SAT THIS MORNING INCENTIVE SPIROMETER AND PULMONARY TOILETING 4-2 CXR FOR HYPOXIC: NO INFILTRATE OR VASCULAR CONGESTION THANK YOU, CARINA (This form is maintained as a part of the permanent medical record) 2014 [employer]. All Rights Reserved Carina Saucedo RN, BS [email or web address] [facility]
== END 2018-02-01 15:45 | DRG 482 ==
LOC: ERS 20:03 → SURG B 22:01
PROVIDERS: ADMIT Surgery; ATTEND Surgery
PROC: 0QH634Z Insertion of Internal Fixation Device into Right Upper Femur, Percutaneous Approach (ICD-10-PCS; principal; 2018-01-26)
DX: S72.001A Fracture of unspecified part of neck of right femur, initial encounter for closed fracture (principal); J44.9 Chronic obstructive pulmonary disease, unspecified; F17.290 Nicotine dependence, other tobacco product, uncomplicated; I12.9 Hypertensive chronic kidney disease with stage 1 through stage 4 chronic kidney disease, or unspecified chronic kidney disease; N18.9 Chronic kidney disease, unspecified
CPT/HCPCS: 36415; 51702; 71045; 72170; 76000; 80048; 80053; 81003; 83690; 83735; 83880; 84100; 85025; 93005; 94640; 96374; 96375; 99406; C1713; C1769; G0390; G8978-GP-CK; G8979-GP-CI; G8987-GO-CJ; G8988-GO-CI; J0360; J1100; J1650; J1885; J1940; J2001; J2270; J2405; J2704; J3475; J3480; J7050; J7620; S0020

== ENCOUNTER 2018-04-09 13:46 | Outpatient (CLI) | payer BC, MEDICARE | END 2018-04-09 13:47 | disposition home or self-care (01) | LOC: BICMAMMO 13:46 | PROVIDERS: ATTEND Obstetrics & Gynecology | DX: Z12.31 Encounter for screening mammogram for malignant neoplasm of breast (principal); R92.1 Mammographic calcification found on diagnostic imaging of breast | CPT/HCPCS: 77063; 77067 ==

== ENCOUNTER 2019-03-15 10:11 | Emergency (ER) | payer BC, MEDICARE ==
[2019-03-15] MEDS ORDERED: ISOVUE-370 76%-LOCM 1 ML ONE (11:11)
--- NOTE | 2019-03-15 11:35 | RAD ---
PORTABLE CHEST: INDICATION: Shortness of breath. COMPARISON: 01/28/2018. FINDINGS: Mild hyperexpansion. The lungs appear clear with no infiltrate identified. Heart size is normal. IMPRESSION: Evidence of chronic obstructive pulmonary disease. No acute process. POS: OFF
[2019-03-15 12:33] LABS: #Basophils 0.1 thou/uL (0.0-0.2); #Eosinphils 0.2 thou/uL (0.0-0.7); #Lymphocytes 1.4 thou/uL (1.20-3.40); #Monocytes 0.6 thou/uL (0.11-0.59); #Neutrophils 4.4 thou/uL (1.40-6.50); %Basophils 1.6 % (0.0-1.0); %Eosinophils 3.6 % (0.0-10.0); %Lymphocytes 21.4 % (21.0-51.0); %Monocytes 8.5 % (0.0-10.0); %Neutrophils 64.9 % (42.0-75.0); Mean Corpuscular HGB CONC 32.2 g/dL (32.0-36.0); Mean Corpuscular Hemoglobin 30.2 pg (27.0-31.0); Mean Corpuscular Volume 93.9 fL (78.0-98.0); Mean Platelet Volume 8.1 fL (7.4-10.4); Platelet Count 306 thou/uL (130-400); RBC Distribution Width 12.5 % (11.5-14.5); Red Blood Cell (RBC) Count 4.29 mill/uL (4.20-5.40); White Blood Cell (WBC) Count 6.7 thou/uL (4.8-10.8)
[2019-03-15 12:55] LABS: ALT (SGPT) 18 U/L (8-55); AST (SGOT) 21 U/L (5-34); Albumin 4.4 g/dL (3.4-4.8); Alkaline Phosphatase 88 U/L (40-150); Anion Gap 14 mmol/L (10-20); BUN (Urea Nitrogen) 17 mg/dL (9.8-20.1); Bilirubin, Total 0.4 mg/dL (0.2-1.2); CK (CPK) 124 U/L (29-168); Calc. Creatinine Clearance 0 mL/min (70-130); Calcium 10.1 mg/dL (7.8-10.44); Carbon Dioxide 25 mmol/L (23-31); Chloride 100 mmol/L (98-107); Estimated GFR-MDRD 69; Globulin 2.6 g/dL (2.4-3.5); Glucose 81 mg/dL (83-110); Lipase 50 U/L (8-78); Potassium 4.1 mmol/L (3.5-5.1); Sodium 135 mmol/L (136-145)
[2019-03-15] MEDS ORDERED: methylPREDNISolone Sod Succ/PF 125 MG/2 ML VIAL ONE (13:13)
[2019-03-15] MEDS ORDERED: diphenhydrAMINE 50 MG/ML VIAL ONE (13:13)
[2019-03-15] MEDS ORDERED: Famotidine/PF 20 mg/2ml Vial ONE (13:13)
--- NOTE | 2019-03-15 14:25 | CT ---
CTA chest with contrast: Multiple axial tomograms obtained through the chest following a pulmonary angiogram protocol with mul tiplanar reconstruction and 3-D postprocessing. INDICATIONS: Dyspnea and chest pain. Assess for pulmonary embolus. COMPARISON: None FINDINGS: Pulmonary arteries show adequate opacification. No evidence of pulmonary embolus identified. Thoracic aorta is unremarkable. No evidence of dissection. Mediastinum appears unremarkable. No adenopathy. Lung escoto show emphysematous change with bullous formation in the upper lungs. Hyperexpansion. No i nfiltrate or effusion. Images through the upper abdomen appear unremarkable. Soft tissues of the thorax appear unremarkable. Osseous structures of the thorax appear unremarkable. IMPRESSION: 1. No evidence of pulmonary embolus 2. Chronic lung changes with emphysema. No acute infiltrate identified.
== END 2019-03-15 14:55 | disposition home or self-care (01) ==
LOC: ERS 10:11
DX: J44.1 Chronic obstructive pulmonary disease with (acute) exacerbation (principal); I10 Essential (primary) hypertension; F17.290 Nicotine dependence, other tobacco product, uncomplicated; Z79.51 Long term (current) use of inhaled steroids
CPT/HCPCS: 36415; 71045; 71275; 80053; 82550; 83690; 83880; 84484; 85025; 85379; 93005; 94640; 96374; 96375; J1200; J2930; J7620; Q9966; S0028

== ENCOUNTER 2019-12-10 16:39 | Emergency (ER) | payer BC, MEDICARE ==
--- NOTE | 2019-12-10 17:53 | RAD ---
Chest AP view INDICATION: Dyspnea with difficulty breathing COMPARISON: November 08, 2019 FINDINGS: Lungs:Severe COPD changes stable Cardiac silhouette:The cardiomediastinal silhouette appears within normal limits. Pulmonary vasculature:Normal Pleural spaces:No pleural effusion or pneumothorax is demonstrated. Upper abdomen:No abnormality seen. Osseous structures: No acute osseous abnormality. Additional findings:None. IMPRESSION: Stable severe COPD.
[2019-12-10 18:03] LABS: #Basophils 0.1 thou/uL (0.0-0.2); #Eosinphils 0.3 thou/uL (0.0-0.7); #Lymphocytes 1.5 thou/uL (1.20-3.40); #Monocytes 0.6 thou/uL (0.11-0.59); #Neutrophils 3.2 thou/uL (1.40-6.50); %Eosinophils 5.7 % (0.0-10.0); %Lymphocytes 26.5 % (21.0-51.0); %Monocytes 10.1 % (0.0-10.0); %Neutrophils 55.8 % (42.0-75.0); Hemoglobin 13.1 g/dL (12.0-16.0); Mean Corpuscular HGB CONC 32.9 g/dL (32.0-36.0); Mean Corpuscular Hemoglobin 30.8 pg (27.0-31.0); Mean Corpuscular Volume 93.5 fL (78.0-98.0); Mean Platelet Volume 7.6 fL (7.4-10.4); Platelet Count 303 thou/uL (130-400); RBC Distribution Width 11.9 % (11.5-14.5); Red Blood Cell (RBC) Count 4.26 mill/uL (4.20-5.40); White Blood Cell (WBC) Count 5.8 thou/uL (4.8-10.8)
[2019-12-10 18:24] LABS: ALT (SGPT) 13 U/L (8-55); AST (SGOT) 20 U/L (5-34); Albumin 4.2 g/dL (3.4-4.8); Alkaline Phosphatase 76 U/L (40-110); Anion Gap 11 mmol/L (10-20); BUN (Urea Nitrogen) 11 mg/dL (9.8-20.1); Bilirubin, Total 0.4 mg/dL (0.2-1.2); Calc. Creatinine Clearance 0 mL/min (70-130); Calcium 9.3 mg/dL (7.8-10.44); Carbon Dioxide 28 mmol/L (23-31); Chloride 98 mmol/L (98-107); Estimated GFR-MDRD 70; Globulin 2.8 g/dL (2.4-3.5); Glucose 81 mg/dL (83-110); Potassium 3.7 mmol/L (3.5-5.1); Sodium 133 mmol/L (136-145)
== END 2019-12-10 19:15 | disposition home or self-care (01) ==
LOC: ERS 16:39
DX: J44.1 Chronic obstructive pulmonary disease with (acute) exacerbation (principal); I10 Essential (primary) hypertension; L40.9 Psoriasis, unspecified; F17.290 Nicotine dependence, other tobacco product, uncomplicated
CPT/HCPCS: 71045; 80053; 84484; 85025; 93005; 94640; J7620

== ENCOUNTER 2020-03-05 12:34 | Outpatient (CLI) | payer BC, MEDICARE ==
--- NOTE | 2020-03-05 12:53 | RAD ---
EXAM: Chest PA and lateral: HISTORY: Dyspnea COMPARISON: 01/26/2016, 12/10/2019 and 11/08/2019 FINDINGS: Heart: Normal cardiac silhouette Aorta: Atherosclerosis of the aorta Pulmonary vessels: Normal Costophrenic angles: Costophrenic angles are clear. Lungs: Hyperinflation with chronic changes. Pneumothorax: No pneumothorax Osseous structures: No acute osseous abnormalities. Stable kyphosis. IMPRESSION: 1. Atherosclerosis 2. COPD.
== END 2020-03-05 12:35 | disposition home or self-care (01) ==
LOC: BICRAD 12:34
PROVIDERS: ATTEND Internal Medicine Critical Care Medicine
DX: R06.00 Dyspnea, unspecified (principal); J44.9 Chronic obstructive pulmonary disease, unspecified; I70.0 Atherosclerosis of aorta
CPT/HCPCS: 71046

== ENCOUNTER 2020-08-10 13:25 | Outpatient (CLI) | payer BC, MEDICARE ==
--- NOTE | 2020-08-10 14:05 | BD ---
EXAM: Bone densitometry using DEXA HISTORY: 75 yo female. Screening for postmenopausal osteoporosis FINDINGS: L1--bone mineral density 0.547 g/sq cm; T score -4.0 ; Z score -2.0 L2--bone mineral density 0.579 g/sq cm; T score -4.1 ; Z score -1.8 L3--bone mineral density 0.593 g/sq cm; T score -4.5 ; Z score -2.1 L4--bone mineral density 0.539 g/sq cm; T score -4.7 ; Z score -2.3 Total L1-L4--bone mineral density 0.565 g/sq cm; T score -4.4 ; Z score -2.1 Left femoral neck--bone mineral density0.490; T score -2.2 ; Z score -1.3 Total proximal left femur--bone mineral density 0.467; T score -2.9 ; Z score -2.2 IMPRESSION: Osteoporosis
--- NOTE | 2020-08-10 14:25 | CT ---
EXAM: CT Pulmonary Lung Scan PROVIDED CLINICAL HISTORY: Lung screening. Tobacco abuse. Patient states smoked for 50 years. COPD. COMPARISON: CTA thorax on 03/15/2019 FINDINGS: Again noted are prominent bullous emphysematous changes throughout the lungs bilaterally much greater in the upper lobes. Calcified granuloma is seen in the anterior right upper lobe. A 3 mm noncalcified pulmonary nodules seen in the most anterior and inferior right upper lobe. There is a co alescence of slightly irregular subcentimeter nodular densities in the anterolateral aspect of the left upper lobe with adjacent linear areas of scarring. Calcified granuloma is present in the right l ower lobe. There is mild bronchiectasis seen within the lungs bilaterally greater at the lung bases. There are f illing defects within a few left lower lobe bronchi which could be related to areas of mucous plugging. Vascular calcifications are seen in the coronary arteries as well as involving the thoracic aorta. Tr kathleen pericardial effusion is present. Lack of intravenous contrast limits evaluation of mediastinal structures, no definite enlarged lymph node is seen. As noted on the prior CT examination, there is an exophytic hypodense lesion midportion left kidney d emonstrating fluid attenuation on this nonenhanced CT scan examination most compatible with a cyst. Remainder of the visualized upper abdomen demonstrates a grossly normal nonenhanced CT appearance. Mild degenerative changes noted in the spine. IMPRESSION: 1. Lung RADS category 2-3 mm pulmonary nodule right upper lobe with coalescence of tiny nodular densi ties in the left upper lobe continued annual screening with low-dose CT scan thorax in 12 months is recommended. 2. Evidence of COPD with bullous emphysematous changes as well as chronic lung changes. Minimal filli ng defects noted within a few left lower lobe bronchi likely related to mucous plugging. 3. Vascular calcifications. 4. Incomplete imaging of a left renal cyst.
== END 2020-08-10 13:26 | disposition home or self-care (01) ==
LOC: BICCT 13:25
PROVIDERS: ATTEND Registered Nurse
DX: Z13.820 Encounter for screening for osteoporosis (principal); Z12.2 Encounter for screening for malignant neoplasm of respiratory organs; M81.0 Age-related osteoporosis without current pathological fracture; R91.1 Solitary pulmonary nodule; J43.9 Emphysema, unspecified; J98.4 Other disorders of lung; I25.10 Atherosclerotic heart disease of native coronary artery without angina pectoris; I70.90 Unspecified atherosclerosis; Z87.891 Personal history of nicotine dependence; Z78.0 Asymptomatic menopausal state
CPT/HCPCS: 77080; G0297

== ENCOUNTER 2021-07-21 11:12 | Inpatient (IN) | payer BC, MEDICARE ==
[2021-07-21 11:53] LABS: #Basophils 0.1 thou/uL (0.0-0.2); #Eosinphils 0.3 thou/uL (0.0-0.7); #Lymphocytes 0.8 thou/uL (1.20-3.40); #Monocytes 0.5 thou/uL (0.11-0.59); #Neutrophils 4.4 thou/uL (1.40-6.50); %Basophils 1.6 % (0.0-1.0); %Eosinophils 5.2 % (0.0-10.0); %Monocytes 7.8 % (0.0-10.0); %Neutrophils 72.4 % (42.0-75.0); Hemoglobin 12.5 g/dL (12.0-16.0); Mean Corpuscular HGB CONC 32.8 g/dL (32.0-36.0); Mean Corpuscular Hemoglobin 31.2 pg (27.0-31.0); Mean Corpuscular Volume 95.1 fL (78.0-98.0); Platelet Count 233 thou/uL (130-400); White Blood Cell (WBC) Count 6.1 thou/uL (4.8-10.8)
[2021-07-21 12:14] LABS: Acetaminophen Less than 6.0 mcg/mL (10.0-30.0); Alcohol Less than 10 mg/dL (Less than 10); Salicylate Less than 8.0 mg/dL (15.0-30.0)
[2021-07-21 12:17] LABS: ALT (SGPT) 12 U/L (8-55); AST (SGOT) 17 U/L (5-34); Albumin 3.8 g/dL (3.4-4.8); Alkaline Phosphatase 73 U/L (40-110); Anion Gap 7 mmol/L (10-20); BUN (Urea Nitrogen) 16 mg/dL (9.8-20.1); Bilirubin, Total 0.3 mg/dL (0.2-1.2); Calc. Creatinine Clearance 0 mL/min (70-130); Calcium 9.1 mg/dL (7.8-10.44); Carbon Dioxide 30 mmol/L (23-31); Chloride 102 mmol/L (98-107); Globulin 2.4 g/dL (2.4-3.5); Glucose 99 mg/dL (83-110); Lipase 39 U/L (8-78); Potassium 4.3 mmol/L (3.5-5.1); Protein, Total 6.2 g/dL (5.8-8.1); Sodium 135 mmol/L (136-145)
[2021-07-21 12:37] LABS: CKMB 4.2 ng/mL (0-6.6)
[2021-07-21 14:38] LABS: Bilirubin Negative (Negative); Blood, Urine Negative (Negative); Clarity Turbid (Clear); Glucose, Urine (Dipstick) Normal (Negative); Ketone, Urine Negative (Negative); Leukocyte Negative Leu/uL (Negative); Nitrite 2+ (Negative); Protein, Urine (Dipstick) 10 mg/dL (Neg-Trace); RBC/HPF None Seen HPF (0-3); Specific Gravity, Urine 1.013 (1.002-1.036); Squamous Epithelial None Seen HPF (0-3); Urobilinogen Normal mg/dL (Less than 2); WBC/HPF 0-3 HPF (0-3)
[2021-07-21 14:43] LABS: Amphetamine Not Detected (NotDetected); Barbiturates Screen Not Detected (NotDetected); Benzodiazepine Screen Not Detected (NotDetected); Cocaine Metabolite Screen Not Detected (NotDetected); Methadone Not Detected (NotDetected); Methamphetamine Not Detected (NotDetected); Opiate Screen Not Detected (NotDetected); Oxycodone Screen Not Detected (NotDetected); Phencyclidine (PCP) Not Detected (NotDetected); THC/Cannabinoid Screen Not Detected (NotDetected); Tricyclic Screen Not Detected (NotDetected)
[2021-07-21 14:52] LABS: Bacteria/HPF 1+ HPF (None Seen)
[2021-07-21] MEDS ORDERED: Aspirin Chewable 81 MG TAB ONE (15:25)
[2021-07-21 15:54] LABS: Troponin I 0.263 ng/mL (< 0.028)
[2021-07-21] MEDS ORDERED: predniSONE 20 MG TAB PO SCH (16:15)
[2021-07-21] MEDS ORDERED: predniSONE 20 MG TAB ONE (16:26)
[2021-07-21] MEDS ORDERED: Lactated Ringer's 1,000 ML IV SCH ×2 (16:30)
[2021-07-21 17:55] VITALS: BMI 16.0
[2021-07-21 18:41] LABS: Troponin I 0.299 ng/mL (< 0.028)
[2021-07-21] MEDS ORDERED: Albuterol Sulfate 2.5 mg/3 ml Neb NEB PRN (19:32)
[2021-07-21] MEDS ORDERED: Magnesium 2 GM/50 ML 2 GM in Premix Bag 1 BAG IVPB SCH (20:00)
[2021-07-21] MEDS: Doxycycline 100 MG CAP PO SCH (21:05)
[2021-07-21] MEDS: guaiFENesin ER 600 MG TAB PO SCH (21:06)
[2021-07-21 21:23] LABS: Troponin I 0.245 ng/mL (< 0.028)
[2021-07-22 05:00] LABS: #Lymphocytes 0.7 thou/uL (1.20-3.40); #Monocytes 0.7 thou/uL (0.11-0.59); #Neutrophils 4.8 thou/uL (1.40-6.50); %Basophils 0.4 % (0.0-1.0); %Eosinophils 0.1 % (0.0-10.0); %Lymphocytes 11.6 % (21.0-51.0); %Monocytes 10.8 % (0.0-10.0); %Neutrophils 77.1 % (42.0-75.0); Mean Corpuscular HGB CONC 32.8 g/dL (32.0-36.0); Mean Corpuscular Hemoglobin 31.2 pg (27.0-31.0); Mean Corpuscular Volume 95.3 fL (78.0-98.0); Mean Platelet Volume 8.2 fL (7.4-10.4); Platelet Count 232 thou/uL (130-400); Red Blood Cell (RBC) Count 3.84 mill/uL (4.20-5.40); White Blood Cell (WBC) Count 6.2 thou/uL (4.8-10.8)
[2021-07-22 06:09] LABS: ALT (SGPT) 12 U/L (8-55); AST (SGOT) 21 U/L (5-34); Albumin 3.6 g/dL (3.4-4.8); Alkaline Phosphatase 73 U/L (40-110); Anion Gap 13 mmol/L (10-20); BUN (Urea Nitrogen) 21 mg/dL (9.8-20.1); Bilirubin, Total 0.2 mg/dL (0.2-1.2); Calc. Creatinine Clearance 44 mL/min (70-130); Carbon Dioxide 24 mmol/L (23-31); Chloride 104 mmol/L (98-107); Globulin 2.4 g/dL (2.4-3.5); Glucose 168 mg/dL (83-110); Sodium 137 mmol/L (136-145)
[2021-07-22] MEDS: predniSONE 20 MG TAB PO SCH (09:06)
[2021-07-22] MEDS: Doxycycline 100 MG CAP PO SCH ×2 (09:06→20:27)
[2021-07-22] MEDS: Enoxaparin Sodium 40 MG/0.4 ML SYRINGE SC SCH (09:07)
[2021-07-22] MEDS: guaiFENesin ER 600 MG TAB PO SCH ×2 (09:07→20:27)
[2021-07-22 09:12] LABS: SARS-CoV-2 PCR by NAA Not Detected (NotDetected)
[2021-07-22] MEDS ORDERED: Dextrose 50% Abboject 50 ML SYRINGE SLOW IVP PRN (17:49)
[2021-07-22] MEDS ORDERED: HumaLOG 300 UNITS/3 ML VIAL SC PRN ×2 (17:49)
[2021-07-22] MEDS ORDERED: Dextrose 5% in Water 1,000 ML IV PRN (17:49)
[2021-07-22] MEDS ORDERED: Azithromycin 250 MG TAB PO SCH (18:00)
[2021-07-23] MEDS: Enoxaparin Sodium 40 MG/0.4 ML SYRINGE SC SCH (08:25)
[2021-07-23] MEDS: predniSONE 20 MG TAB PO SCH (08:25)
[2021-07-23] MEDS: Doxycycline 100 MG CAP PO SCH (08:25)
[2021-07-23] MEDS: guaiFENesin ER 600 MG TAB PO SCH (08:25)
[2021-07-23 08:40] VITALS: BP 144/79; TEMP 98.2
[2021-07-23] MEDS ORDERED: Hydrochlorothiazide 25 MG TAB PO SCH (09:00)
[2021-07-23] MEDS ORDERED: Bisoprolol Fumarate 5 MG TAB PO SCH (09:00)
== END 2021-07-23 13:37 | disposition home or self-care (01) | DRG 191 ==
LOC: ERS 11:12 → ERHOLD 15:09 → 2NO 17:20 → OBSVTOIN 07-23 08:52
PROVIDERS: ADMIT Family Medicine; ATTEND Family Medicine
DX: J44.1 Chronic obstructive pulmonary disease with (acute) exacerbation (principal); E44.0 Moderate protein-calorie malnutrition; Z68.1 Body mass index [BMI] 19.9 or less, adult; Z20.822 Contact with and (suspected) exposure to COVID-19; I10 Essential (primary) hypertension; L40.9 Psoriasis, unspecified; R09.89 Other specified symptoms and signs involving the circulatory and respiratory systems; Z96.641 Presence of right artificial hip joint; Z88.8 Allergy status to other drugs, medicaments and biological substances; Z91.048 Other nonmedicinal substance allergy status; Z79.51 Long term (current) use of inhaled steroids; Z83.6 Family history of other diseases of the respiratory system; Z82.61 Family history of arthritis; Z87.891 Personal history of nicotine dependence
CPT/HCPCS: 36415; 36416; 70450; 71045; 72125; 80053; 80306; 80307; 81003; 81015; 82553; 83690; 84145; 84484; 85025; 93005; 93010; 94640; 96372; 96374; G0378; J1650; J3475; J7120; J7512; J7620; U0003; U0005

== ENCOUNTER 2021-08-12 09:56 | Outpatient (CLI) | payer BC, MEDICARE | END 2021-08-12 09:57 | disposition home or self-care (01) | LOC: BICMAMMO 09:56 | PROVIDERS: ATTEND Registered Nurse | DX: Z12.31 Encounter for screening mammogram for malignant neoplasm of breast (principal) | CPT/HCPCS: 77063; 77067 ==

== ENCOUNTER 2022-03-14 12:30 | Outpatient (CLI) | payer BC, MEDICARE | END 2022-03-14 12:31 | disposition home or self-care (01) | LOC: PET 12:30 | PROVIDERS: ATTEND Registered Nurse | DX: R91.1 Solitary pulmonary nodule (principal); J43.9 Emphysema, unspecified; F17.210 Nicotine dependence, cigarettes, uncomplicated | CPT/HCPCS: 78815; A9552 ==